=== PATIENT | female | born 1985 | race Caucasian/White ===

== ENCOUNTER 2022-07-14 08:18 | Emergency (ER) | payer OTHER, SELFPAY ==
--- NOTE | ~2022-07-14 | CT_ITS ---
EXAMINATION: CT abdomen pelvis w con DATE: 07/14/2022 09:27 INDICATION: Right lower quadrant abdominal pain. TECHNIQUE: Computed tomography (CT) of the abdomen and pelvis was performed with 100 mL Omnipaque-350 intravenous contrast. Automated exposure control and iterative reconstruction technique were employe d. The dose-length product was 233.10 mGy-cm. COMPARISON: None FINDINGS: Lung bases are clear. Heart size is normal. No pericardial or pleural effusion. Focal hepatic steatos is at the ligamentum teres. There are a couple subcentimeter low-attenuation hepatic cysts in the rig ht hepatic lobe. Gallbladder, spleen, pancreas, bilateral adrenal glands and right kidney are normal. There are a few small regions of cortical scarring at the left kidney likely sequela of prior infect ion or infarction. Bowels including the appendix are normal. The uterus is not identified and has lik rahul been surgically resected. 2.5 cm left adnexal cyst. Right adnexa and bladder are unremarkable. Sm all amount of likely physiologic free fluid in the cul-de-sac. No abscess or free intraperitoneal gas . No pathologically enlarged abdominal or pelvic lymphadenopathy. Bones are unremarkable. IMPRESSION: 1. Normal appendix. No acute intra-abdominal/pelvic process. Reviewed, dictated and finalized at location B.
[2022-07-14 08:21] VITALS: BP 144/97; PULSE 72; RESP 14; TEMP 36.4; O2SAT 100
[2022-07-14 08:25] VITALS: BP 144/97; O2SAT 100
[2022-07-14 08:26] VITALS: O2SAT 100
[2022-07-14 08:30] VITALS: O2SAT 100
[2022-07-14 08:31] VITALS: BP 135/99; O2SAT 100
[2022-07-14 08:50] LABS: Basophils Percent Auto 0.3 % (0.2-1.2); Eosinophils Absolute Auto 0.2 K/mm3 (0-0.3); Eosinophils Percent Auto 3.7 % (0-4.4); Immature Granulocyte Absolute 0.01 K/mm3 (0.00-0.031); Immature Granulocyte Percent A 0.2 % (0-0.5); Lymphocytes Absolute Auto 1.43 K/mm3 (0.9-3.2); Lymphocytes Percent Auto 24.4 % (18.3-44.2); Mean Corpuscular HGB Conc 33.3 g/dl (32-36); Mean Corpuscular Volume 96.1 fl (80-100); Mean Platelet Volume 9.9 fl (7.4-10.4); Monocytes Absolute Auto 0.4 K/mm3 (0.1-0.6); Neutrophils Absolute Auto 3.8 K/mm3 (1.3-6.7); Neutrophils Percent Auto 64.4 % (45.5-73.1); Platelet Count Result 218 k/mm3 (150-375); Red Blood Count 4.37 M/mm3 (4.2-5.4); Red Cell Distribution Width 12.5 % (11.5-14.5); White Blood Count 5.9 K/mm3 (4.5-10.0)
[2022-07-14 08:54] LABS: Add Urine Microscopic? NO; Appearance Urine Clear (Clear); Bilirubin Urine Negative (Negative); Blood Urine Negative (Negative); Color Urine Light Yellow (Yellow); Glucose Urine UA Negative (Negative); Ketones Urine Negative (Negative); Leukocyte Esterase Ur Negative LEU/UL (Negative); Nitrate Urine Negative (Negative); Protein Urine Negative (Negative); Specific Grav Ur <= 1.005 (1.001-1.035); Urobilinogen Urine 0.2 mg/dL (<2.0)
[2022-07-14 09:08] LABS: Alanine Aminotransferase 15 U/L (6-35); Albumin Level 4.3 g/dL (3.5-5.1); Alkaline Phosphatase 45 U/L (38-126); Anion Gap 10 mmol/L (8-16); Aspartate Amino Transferase 24 U/L (14-36); Bilirubin,Total 0.7 mg/dL (0.2-1.3); Blood Urea Nitrogen 11 mg/dL (7-17); Calcium 8.6 mg/dL (8.4-10.2); Carbon Dioxide 27 mmol/L (22-30); Chloride 98 mmol/L (98-107); Estimated CRCL calculation 54 ml/min; Estimated Glomerular Filt Rate 51; Glucose 91 mg/dL (65-110); Lipase 77 U/L (23-300); Potassium 3.9 mmol/L (3.4-5.0); Sodium 135 mmol/L (137-145)
--- NOTE | 2022-07-14 09:11 | ED.ABDPAIN ---
HPI - Abdominal Pain General Chief Complaint: Abdominal Pain Stated Complaint: Lower ABD Pain Time Seen by Provider: 07/14/22 08:36 Source: patient and family Mode of arrival: ambulatory Limitations: no limitations History of Present Illness HPI narrative: Patient is a 36-year-old female with a history of nephrolithiasis presenting to the emergency department for evaluation of right lower quadrant abdominal pain. Patient reports acute onset right lower quadrant abdominal pain this morning which was severe and sharp in nature. No radiation of the pain to the back. Patient reports associated nausea but no episodes of emesis. She denies fever, chills, dysuria or hematuria. Patient does have a history of nephrolithiasis but states that when she is symptomatic with that, she usually experiences flank pain. Patient denies any urinary frequency or urgency. Patient states she initially presented to an urgent care but was referred to this facility for further work-up. At the time of my assessment, pain is reported to be mild in nature. Patient states that pain has somewhat improved since arrival. She denies diarrhea or constipation. Patient has history of hysterectomy, denies other intra-abdominal surgery. Related Data Allergies Allergy/AdvReac Type Severity Reaction Status Date / Time No Known Allergies Allergy Verified 07/14/22 08:37 Review of Systems Review of Systems: CONSTITUTIONAL: Denies fever, chills, or sweats. EYES: Denies visual changes, redness, or discharge. ENT: Denies rhinorrhea, congestion, sore throat, or otalgia. CARDIOVASCULAR: Denies chest pain, palpitations, or edema. RESPIRATORY: Denies cough or dyspnea. GASTROINTESTINAL: Reports right lower quadrant abdominal pain, nausea, denies vomiting or diarrhea GENITOURINARY: Denies dysuria or hematuria. SKIN: Denies rash or itching. MUSCULOSKELETAL: Denies back pain, joint pain, or myalgia. [facility] Social History Social History (Updated 07/14/22 @ 09:13 by Nasreen Vela MD) Smoking status: Never smoker Alcohol intake: current Alcohol use details: rare Substance use: never Living arrangements: with family Gender identity (if verbalized by the patient): Female Exam Narrative: GENERAL: Awake, alert, conversant HEAD: Normocephalic, atraumatic. EYES: PERRLA and EOMI. ENT: Nares clear, no rhinorrhea or epistaxis. Mucous membranes moist. NECK: Supple. CHEST: No respiratory distress, breathing even and non labored HEART: Regular rate, sinus rhythm ABDOMEN:Non distended, mild tenderness in the epigastrium and RLQ without rebound rigidity or guarding, no CVA tenderness bilaterally EXTREMITIES: Normal range of motion. No edema. SKIN: Warm, dry, no rash. NEURO:No focal deficits. Alert and oriented x3 Course Vital Signs Vital signs: Vital Signs Temperature 36.4 C 07/14/22 08:21 Pulse Rate 72 07/14/22 08:21 Respiratory Rate 14 07/14/22 08:21 Blood Pressure 144/97 H 07/14/22 08:21 Pulse Oximetry 100 07/14/22 08:21 Temperature 36.4 C 07/14/22 08:21 Pulse Rate 72 07/14/22 08:21 Respiratory Rate 14 07/14/22 08:21 Blood Pressure 135/99 H 07/14/22 08:31 Pulse Oximetry 100 07/14/22 08:31 MDM - Abdominal Pain MDM Narrative Medical decision making narrative: Patient presenting for evaluation of abdominal pain which has been colicky in nature, occurred once previously around 3 weeks ago. At the time of assessment, ABCs are intact and vital signs are stable. Patient without significant pain at the time of assessment. Differential includes nephrolithiasis, urinary tract infection, obstruction, renal colic, gastritis. Patient with reassuring laboratory studies. No leukocytosis. Patient has borderline elevated creatinine. UA is normal. He scan without acute findings. Patient was reassessed and had no recurrence of her pain. Perhaps she passed a small kidney stone. At this point, no emergent or life-threatening condit
--- NOTE | 2022-07-14 09:20 | PC.NURSE ---
Patient off unit to CT.
[2022-07-14] MEDS: SODIUM CHLORIDE 0.9% IV 1,000 ML 999 ML IV CONT (09:34)
[2022-07-14] MEDS: ONDANSETRON INJ 4 MG/2 ML VIAL IV PUSH (09:35)
[2022-07-14] MEDS: ACETAMINOPHEN 500 MG TABLET 1000 MG PO (09:35)
== END 2022-07-14 10:19 | disposition home or self-care (01) ==
PROVIDERS: Emergency Provider Emergency Medicine
DX: R10.31 Right lower quadrant pain (principal)
CPT/HCPCS: 36415; 74177; 80053; 81003; 83690; 85025; 96361; 96374; 99284; A9270; J2405; J7030; Q9967

== ENCOUNTER 2025-06-23 09:56 | Outpatient (CLI) | payer OTHER, SELFPAY ==
--- NOTE | ~2025-06-23 | US_ITS ---
EXAMINATION: US soft tissue head and neck DATE: 06/23/2025 10:15 INDICATION: Localized swelling, mass and lump, neck. TECHNIQUE: Multiple grayscale and Doppler ultrasound images of the head and neck were obtained. COMPARISON: None FINDINGS: At the suprasternal notch, there is a 2.0 x 1.7 x 1.3 cm hypoechoic mass with internal vascular flow. IMPRESSION: 1. 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 The differential diagnosis includes ectopic thyroid, parathyroid adenoma, venous malformation, peripheral nerve sheath tumor, thymic neoplasm, and tania metastatic disease. Chest CT with contrast is recommended. Reviewed, dictated and finalized at location E. IMPRESSION: 1. 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 The differential diagnosis includes e ctopic thyroid, parathyroid adenoma, venous malformation, peripheral nerve kat th tumor, thymic neoplasm, and tania metastatic disease. Chest CT with contrast is recommended.
== END 2025-06-23 09:57 | disposition home or self-care (01) ==
LOC: GOSHIMG 09:56
PROVIDERS: PCP Family Medicine; Visit Provider Family Medicine
DX: R22.1 Localized swelling, mass and lump, neck (principal)
CPT/HCPCS: 76536